=== PATIENT | female | born 1965 | race Two or more races ===

== ENCOUNTER 2021-04-08 10:21 | Emergency (ER) | payer OTHER ==
[~2021-04-08] VITALS: Ht 154.9 cm; Wt 90.5 kg
[2021-04-08 12:02] VITALS: BP 143/81
[2021-04-08] MEDS ORDERED: LIDOCAINE 5% TRANSDERMAL PATCH TD ONE (12:15)
== END 2021-04-08 14:15 | disposition home or self-care (01) ==
LOC: EMS 10:26
DX: M54.2 Cervicalgia (principal)
CPT/HCPCS: 72040; 99283